=== PATIENT | male | born 1990 | race Caucasian/White ===

== ENCOUNTER 2017-05-17 16:51 | Emergency (ER) | payer MEDICAID, OTHER ==
[2017-05-17 16:58] VITALS: BP 108/71; PULSE 67; RESP 16; TEMP 99.5; O2SAT 95
--- NOTE | 2017-05-17 17:04 | EDPHY ---
H & P Time Seen by Provider: 05/17/17 17:03 HPI/ROS: 26-year-old male presents complaining of bee sting to left foot yesterday with gradually increased swelling now involving his lower leg in addition to his foot. After the initial stating he did not do any particular treatment and she is to weight on Benadryl because he was going to [place] where he knew he would be drinking wine. When he got home from the birthday [employer] late last night he took a Benadryl and then again this morning and has noted marked increase in swelling as the day progressed. He has had similar reactions to bee stings in the past. No shortness of breath, no mouth swelling no difficulty swallowing. Review of systems As per HPI General no fever no chills no weakness HEENT no eye pain no eye discharge. No eye redness, no sore throat Respiratory no cough, no shortness of breath Cardiac no chest pain, no peripheral edema GI no abdominal pain, no diarrhea, no constipation, no nausea, no vomiting no flank pain, no hematuria, no dysuria Musculoskeletal no myalgias, no joint pain Heme no easy bruising, no easy bleeding Endo no polyuria, no polydipsia Skin positive rashes, no pruritus Neuro no syncope, no dizziness, no headaches Psych is no suicidal ideation, no homicidal ideation Past Medical/Surgical History: Allergy to bee stings Social History: Alcohol socially, denies drug Smoking Status: Former smoker Physical Exam: 26-year-old male Alert and oriented in no acute distress nontoxic appearance, afebrile Atraumatic normocephalic Neck no JVD Lungs clear to auscultation, no respiratory distress Heart regular rate and rhythm Extremities no cyanosis clubbing Left lower extremity with swelling and scattered areas of erythema to left foot extending through ankle to lower 3rd of lower leg. No increased warmth Good capillary refill Distal pulses intact Normal sensation No posterior calf tenderness, negative Homans Constitutional: Initial Vital Signs Temperature (C) 37.5 C 05/17/17 16:54 Heart Rate 67 05/17/17 16:54 Respiratory Rate 16 05/17/17 16:54 Blood Pressure 108/71 05/17/17 16:54 O2 Sat (%) 95 05/17/17 16:54 O2 Delivery Mode Room Air Allergies/Adverse Reactions: No Known Allergies Allergy (Unverified 05/17/17 16:58) Home Medications: Medication Instructions Recorded BENADRYL 05/17/17 EPINEPHrine [Epipen 0.3 MG] 0.3 mg IM ONCE #2 syr 05/17/17 Famotidine [Pepcid 20 MG (*)] 20 mg PO BID #10 tab 05/17/17 methylPREDNISolone [Medrol Dose 1 each PO AD #1 ea 05/17/17 Ravi] Medical Decision Making ED Course/Re-evaluation: Patient seen and evaluated for bee sting to left lower extremity Differential diagnosis considered Insect sting allergy, cellulitis Impression Insect sting allergy Plan Prednisone 60 p. o. here, famotidine 20 p.o. here Prescriptions for home Medrol Dosepak to begin tomorrow, famotidine twice daily x5 days, EpiPen pack Also advised ice elevation Return for any worsening of signs or symptoms - Data Points Medications Given: Discontinued Medications Famotidine (Pepcid) 20 mg PO EDNOW ONE Stop: 05/17/17 17:13 Last Admin: 05/17/17 17:25 Dose: 20 mg Methylprednisolone (Medrol) 8 mg PO EDNOW ONE Stop: 05/17/17 17:13 Last Admin: 05/17/17 17:41 Dose: Not Given Prednisone (Prednisone) 60 mg PO EDNOW ONE Stop: 05/17/17 17:22 Last Admin: 05/17/17 17:25 Dose: 60 mg Departure - Departure Disposition: Home, Routine, Self-Care Clinical Impression: Allergic to insect stings Condition: Good Instructions: Insect Bite or Sting (ED) Additional Instructions: Take medrol dosepack as directed, begin tomorrow morning. Famotidine 20 mg twice a day for 5 days May continue Benadryl every 6 hours, generally for 48-72 hours Referrals: NONE *PRIMARY CARE P,. [Primary Care Provider] - As per Instructions Prescriptions: EPINEPHrine [Epipen 0.3 MG] 0.3 mg IM ONCE #2 syr Famotidine [Pepcid 20 MG (*)] 20 mg PO BID #10 tab methylPREDNISolone [Medrol Dose Ravi] 1 each PO AD #1 ea
[2017-05-17] MEDS ORDERED: methylPREDNISolone 4 MG TAB PO ONE (17:12)
[2017-05-17] MEDS ORDERED: FAMOTIDINE 20 MG TAB PO ONE (17:12)
[2017-05-17] MEDS ORDERED: predniSONE 20 MG TAB PO ONE (17:21)
== END 2017-05-17 17:38 | disposition home or self-care (01) ==
LOC: CED 16:51
DX: T63.441A Toxic effect of venom of bees, accidental (unintentional), initial encounter (principal); Z87.891 Personal history of nicotine dependence

== ENCOUNTER 2017-07-11 11:23 | Day surgery (SDC) | payer MEDICAID ==
[2017-07-11] MEDS ORDERED: LR 1,000 ML IV ONE (11:37)
--- NOTE | 2017-07-11 12:46 | PDANEPAE ---
ANE History of Present Illness right inguinal hernia ANE Past Medical History - Cardiovascular History Hx Hypertension: No Hx Arrhythmias: No Hx Chest Pain: No Hx Coronary Artery / Peripheral Vascular Disease: No Hx CHF / Valvular Disease: No Hx Palpitations: No - Pulmonary History Hx COPD: No Hx Asthma/Reactive Airway Disease: No Hx Recent Upper Respiratory Infection: No Hx Oxygen in Use at Home: No Hx Sleep Apnea: No Sleep Apnea Screening Result - Last Documented: Negative - Neurologic History Hx Cerebrovascular Accident: No Hx Seizures: No Hx Dementia: No - Endocrine History Hx Diabetes: No - Renal History Hx Renal Disorders: No - Liver History Hx Hepatic Disorders: No - Neurological & Psychiatric Hx Hx Neurological and Psychiatric Disorders: No - Cancer History Hx Cancer: No - Congenital Disorder History Hx Congenital Disorders: No - GI History Hx Gastrointestinal Disorders: No - Other Health History Other Health History: NEG - Chronic Pain History Chronic Pain: No - Surgical History Prior Surgeries: FEMUR FX REPAIR. WISDOM TEETH ANE Review of Systems Review of Systems: - Exercise capacity METS (RN): 5 METS ANE Patient History - Allergies Allergies/Adverse Reactions: Penicillins Allergy (Verified 07/10/17 12:17) - Home Medications Home Medications: NK [No Known Home Meds] 07/10/17 [Last Taken Unknown] - NPO status NPO Since - Liquids (Date): 07/10/17 NPO Since - Liquids (Time): 23:00 NPO Since - Solids (Date): 07/10/17 NPO Since - Solids (Time): 18:00 - Smoking Hx Smoking Status: Former smoker - Family Anes Hx Family Hx Anesthesia Complications: NEG ANE Labs/Vital Signs - Vital Signs Blood Pressure: 107/61 Heart Rate: 54 Respiratory Rate: 18 O2 Sat (%): 96 Height: 177.8 cm Weight: 83.915 kg ANE Physical Exam - Airway Neck exam: FROM Mallampati Score: Class 1 Mouth exam: normal dental/mouth exam - Pulmonary Pulmonary: no respiratory distress - Cardiovascular Cardiovascular: regular rate and rhythym - ASA Status ASA Status: I ANE Anesthesia Plan Anesthesia Plan: general endotracheal anesthesia
[2017-07-11] MEDS ORDERED: MIDAZOLAM 2 MG/2 ML VIAL IVP ONE (12:47)
[2017-07-11] MEDS ORDERED: fentaNYL 100 MCG/2 ML INJ ONE ×3 (12:50→15:45)
[2017-07-11] MEDS ORDERED: PROPOFOL 200 MG/20 ML VIAL ONE (12:50)
[2017-07-11] MEDS ORDERED: LIDOCAINE 2% 5 ML SDV ONE (12:50)
[2017-07-11] MEDS ORDERED: ROCURONIUM 50 MG/5 ML VIAL ONE (12:50)
[2017-07-11] MEDS ORDERED: BUPIVACAINE 0.5% 30 ML SDV ONE (12:56)
[2017-07-11] MEDS ORDERED: CLINDAMYCIN 600 MG/DEXTROSE 50 ML IV ONE (13:39)
[2017-07-11] MEDS ORDERED: CLINDAMYCIN 600 MG/DEXTROSE/50 ML BAG IV ONE (13:40)
--- NOTE | 2017-07-11 13:40 | PDHPUP ---
History & Physical Update H&P update statement: This history and physical update is based on an assessment of the patient which was completed after admission or registration (within 24 hours), but prior to the surgery/procedure. H&P update: H&P reviewed & patient examined, no change in patient's condition since H&P completed
[2017-07-11] MEDS ORDERED: HYDROmorphONE/DILAUDID 2 MG/ML INJ ONE (14:11)
[2017-07-11] MEDS ORDERED: MEPERIDINE 25 MG/ML SYR IVP PRN (14:50)
[2017-07-11] MEDS ORDERED: NALOXONE HCL 0.4 MG/ML INJ IVP PRN (14:50)
[2017-07-11] MEDS ORDERED: HYDROmorphONE/DILAUDID 1 MG/ML INJ IVP PRN (14:50)
[2017-07-11] MEDS ORDERED: ONDANSETRON 4 MG/2 ML VIAL IVP PRN (14:50)
[2017-07-11] MEDS ORDERED: PROMETHAZINE HCL 25 MG/ML INJ IVP PRN (14:50)
[2017-07-11] MEDS ORDERED: SUGAMMADEX SODIUM 200 MG/2 ML VIAL IVP ONE (15:22)
--- NOTE | 2017-07-11 15:39 | POSTANESTH ---
Post Anesthetic Evaluation Cardiovascular Status: Normal, Stable Respiratory Status: Normal, Stable Level of Consciousness/Mental Status: Can Participate in Eval Pain Control: Adequate, Prn Tx Ordered Nausea/Vomiting Control: Adequate, Prn Tx Ordered Complications Possibly Related to Anesthesia: None Noted
[2017-07-11] MEDS: fentaNYL 100 MCG/2 ML INJ IVP PRN ×3 (15:47→16:05)
[2017-07-11] MEDS ORDERED: HYDROmorphONE/DILAUDID 1 MG/ML INJ ONE (16:03)
[2017-07-11 16:33] VITALS: PULSE 62; RESP 16; TEMP 97.9
[2017-07-11] MEDS ORDERED: OXYCODONE/APAP 5/325 TAB PO ONE (16:36)
[2017-07-11 17:35] VITALS: BP 107/65; O2SAT 95
--- NOTE | 2017-07-12 19:17 | GOP ---
[f rep st] OPERATIVE REPORT DATE OF OPERATION: 07/11/2017 SURGEON: Baudilio Benavidez MD CHOCOLATE TEMPERER: None. ANESTHESIA: General endotracheal. ANESTHESIOLOGIST: Eddie Butt MD PREOPERATIVE DIAGNOSIS: Symptomatic right inguinal hernia. POSTOPERATIVE DIAGNOSIS: Symptomatic indirect right inguinal hernia. PROCEDURE PERFORMED: Robotic-assisted laparoscopic right inguinal transabdominal preperitoneal hernia repair with mesh. FINDINGS: Small indirect hernia sac completely reduced. Hernia site repaired with Bard 3D Light large size mesh. No direct, femoral, or obturator hernias identified. SPECIMENS: None. ESTIMATED BLOOD LOSS: 5 cc. DESCRIPTION OF PROCEDURE: The patient was greeted in the preoperative suite. Once again, risks, benefits, and alternatives were discussed. Consent was signed. He was then brought back to the operative suite, placed on the OR table in a supine position. After all anesthesia machines were on and functioning, [employer] time-out was performed. Antibiotics were given on-call to the operating room. After successful induction of general anesthesia, the patient's abdomen was widely prepped and draped in typical sterile fashion. I entered the abdomen via a supraumbilical cutdown through which the Veress needle was passed and I achieved a pneumoperitoneum to 15 mmHg CO2, which was well tolerated by the patient. Through this site, I inserted a 5 mm trocar with the Visiport technique. Once in the abdomen, I placed 2 additional ports, both 8 mm, 1 in the right upper, 1 in the left upper quadrant, both under direct visualization. I then upsized my supraumbilical port to an 8 as well. Once this was done, I then brought in the robot and successfully docked it. Once on the Console, I identified the right lower quadrant peritoneal space. I incised the peritoneum surrounding the right inguinal canal from just above the anterior superior iliac spine to the midline. I then created a space from Edward's ligament medially, all the way laterally to the extent of my dissection. I then successfully gently dissected the hernia sac off the cord structures. It did appear adherent to the vas deferens. After successfully dissecting the hernia sac off the cord structures back to the visceral sac, I ensured that I had an adequate space for my mesh. My mesh was then brought in, successfully placed within the preperitoneal space. I tacked it with a single interrupted 3-0 Vicryl to Edward's ligament. It then lay in that preperitoneal space without any undue kinks and/or pressure. I then turned my attention toward reapproximating the peritoneum, which was done with a running 3-0 V-Loc suture noting excellent reapproximation of the peritoneum. My needles were then removed. I desufflated the patient's abdomen. I then closed the skin with 4-0 Monocryl over which Dermabond was placed. The patient was then extubated in the operative suite and taken to the PACU in satisfactory condition. DRAINS: None. COUNTS: All counts were reported as correct x2. /[id number]/MODL MTDD
== END 2017-07-11 17:25 | disposition home or self-care (01) ==
LOC: FSGY 11:23
PROVIDERS: ATTEND Surgery
PROC: 0YU54JZ Supplement Right Inguinal Region with Synthetic Substitute, Percutaneous Endoscopic Approach (ICD-10-PCS; principal; 2017-07-11 13:00)
DX: K40.90 Unilateral inguinal hernia, without obstruction or gangrene, not specified as recurrent (principal); F12.90 Cannabis use, unspecified, uncomplicated; Z87.81 Personal history of (healed) traumatic fracture; Z88.0 Allergy status to penicillin; Z72.89 Other problems related to lifestyle
CPT/HCPCS: C1781; J1170; J2250; J2704; J3010